=== PATIENT | male | born 1985 | race Caucasian/White ===

== ENCOUNTER 2025-09-14 16:13 | Emergency (ER) | payer BC ==
[~2025-09-14] VITALS: Ht 170.2 cm; Wt 72.6 kg
[2025-09-14 17:06] VITALS: TEMP 98.2
[2025-09-14] MEDS ORDERED: ACETAMINOPHEN ES 500 MG TABLET ONE (18:00)
[2025-09-14] MEDS: ACETAMINOPHEN ES 500 MG TABLET PO ONE (18:00)
[2025-09-14] MEDS ORDERED: KETOROLAC TROMETHAMINE 15 MG/ML VIAL ONE (18:00)
[2025-09-14] MEDS ORDERED: FAMOTIDINE/PF INJ 20 MG/2 ML VIAL IV ONE (18:00)
[2025-09-14] MEDS ORDERED: ONDANSETRON HCL/PF 4 MG/2 ML VIAL ONE (18:00)
[2025-09-14 18:03] LABS: PLATELET COUNT (AUTO) 212 K/uL (150-450); RED BLOOD CELL COUNT(AUTO) 5.33 MIL/uL (4.5-6.0); RED CELL DISTRIBUTION WIDTH 12.9 % (11.5-15.0); WHITE BLOOD COUNT (AUTO) 7.8 K/uL (4.3-11.0)
[2025-09-14] MEDS: IV NS 0.9% 1,000 ML BAG IV ONE (18:10)
[2025-09-14] MEDS: ONDANSETRON HCL/PF 4 MG/2 ML VIAL IVP ONE (18:11)
[2025-09-14] MEDS: KETOROLAC TROMETHAMINE 15 MG/ML VIAL IV ONE (18:11)
[2025-09-14] MEDS: FAMOTIDINE/PF INJ 20 MG/2 ML VIAL IV ONE (18:11)
[2025-09-14 18:15] LABS: CALCIUM, SERUM 8.9 mg/dL (8.5-10.1); CREATININE 1.1 mg/dL (0.6-1.3); SODIUM SERUM 137.0 mmol/L (136-145); UREA NITROGEN, BLOOD 15.0 mg/dL (7-18)
[2025-09-14 18:20] LABS: ASPARTATE AMINOTRANSFERASE 28.0 U/L (15-37); TOTAL PROTEIN, SERUM 7.9 g/dL (6.4-8.2)
[2025-09-14] MEDS ORDERED: FAMO20TA80 PO (18:49)
[2025-09-14] MEDS ORDERED: ONDA4TAB5 PO (18:49)
[2025-09-14 19:16] VITALS: BP 131/79; O2SAT 98
== END 2025-09-14 19:17 | disposition home or self-care (01) ==
LOC: ER 16:24
DX: R10.9 Unspecified abdominal pain (principal); Z85.830 Personal history of malignant neoplasm of bone; Z88.0 Allergy status to penicillin; Z90.49 Acquired absence of other specified parts of digestive tract; Z92.21 Personal history of antineoplastic chemotherapy
CPT/HCPCS: 99285; 96374; 76700; 96361; 96375; 85025; 80048; 83690; 80076; 36415; J1885; J1308; J2405; J7030